=== PATIENT | female | born 2000 | race Caucasian/White ===

== ENCOUNTER 2022-04-11 19:16 | Emergency (ER) | payer BC ==
[2022-04-11] MEDS ORDERED: Ondansetron ODT 4 MG TAB ONE (19:33)
== END 2022-04-11 20:55 | disposition home or self-care (01) ==
LOC: MADERS 19:16
DX: J06.9 Acute upper respiratory infection, unspecified (principal); F17.290 Nicotine dependence, other tobacco product, uncomplicated; Z20.822 Contact with and (suspected) exposure to COVID-19
CPT/HCPCS: 71045; 87804; Q0162; U0003; U0005